=== PATIENT | male | born 1995 | race African-American/Black ===

== ENCOUNTER → 2016-06-16 | Outpatient (CLI) | payer BC, OTHER | END | disposition home or self-care (01) | LOC: C.RDSM 15:48 | PROVIDERS: ATTEND Family Medicine | DX: S43.015A Anterior dislocation of left humerus, initial encounter (principal); X58.XXXA Exposure to other specified factors, initial encounter ==

== ENCOUNTER → 2016-06-24 | Outpatient (CLI) | payer BC, OTHER ==
--- NOTE | 2016-06-25 08:06 | DIAGNOSTIC IMAGING REPORT ---
LEFT SHOULDER MRI HISTORY: Shoulder dislocation. LAXITY AND PAIN IN LEFT SHOULDER TECHNIQUE: Multiplanar multisequence MRI of the left shoulder was performed without contrast. COMPARISON STUDY: Left shoulder 06/09/1716. Left shoulder MRI 11/06/2015. FINDINGS: AC joint: Intact Rotator cuff: Intact Labrum: Abnormal configuration and abnormal signal within the anterior inferior labrum consistent with a soft tissue Bankart lesion. No fracture within the underlying glenoid. Mild soft tissue edema surrounding the anterior inferior glenoid. The superior and posterior labrum remain intact. Biceps tendon: Intact Bones: No dislocation. Small focal defect within the posterior humeral head which measures 5 mm. This is slightly increased in size. There is mild surrounding edema. This is consistent with a subacute on chronic Hill-Sachs impaction fracture. Cartilage: Intact Miscellaneous: No significant joint effusion. IMPRESSION: 1. Slight increase in size within the small subacute on chronic Hill-Sachs impaction fracture. 2. Redemonstration of the soft tissue bony Bankart lesion. This is similar to the prior study. Electronically signed by: Jacky Santa M.D. 06/25/2016 8:05 AM Dictated Date/Time: 06/25/2016 7:56 AM
== END | disposition home or self-care (01) ==
LOC: C.MRI 19:05
PROVIDERS: ATTEND Family Medicine
DX: S43.005A Unspecified dislocation of left shoulder joint, initial encounter (principal); X58.XXXA Exposure to other specified factors, initial encounter